=== PATIENT | female | born 1985 | race Caucasian/White ===

== ENCOUNTER 2017-02-24 23:24 | Outpatient (CLI) | payer MEDICARE | END 2017-02-25 01:00 | disposition home or self-care (01) | LOC: GENOP 23:24 | DX: O99.89 Other specified diseases and conditions complicating pregnancy, childbirth and the puerperium (principal); R68.89 Other general symptoms and signs; Z3A.36 36 weeks gestation of pregnancy | CPT/HCPCS: G0463 ==